=== PATIENT | female | born 1995 | race Caucasian/White ===

== ENCOUNTER 2023-01-24 21:48 | Day surgery (SDC) | payer OTHER ==
[2023-01-24 22:28] VITALS: BMI 38.1
[2023-01-24] MEDS ORDERED: Lactated Ringer's 1,000 ML IV SCH (22:30)
[2023-01-24] MEDS ORDERED: hydrALAZINE 20 MG/ML VIAL SLOW IVP PRN (22:30)
[2023-01-24 23:56] LABS: Bilirubin 3+ (Negative); Blood, Urine 25 (Negative); Clarity Slightly Cloudy (Clear); Glucose, Urine (Dipstick) Normal (Negative); Ketone, Urine 15 mg/dL (Negative); Leukocyte 500 (Negative); Nitrite Negative (Negative); Protein, Urine (Dipstick) 30 mg/dl (Neg-Trace); Urobilinogen 12 mg/dL (Less than 2); pH, Urine 6.5 (5.0-9.0)
[2023-01-25 00:14] LABS: Bacteria/HPF 4+ HPF (None Seen); CAUTI Indications for Culture Pregnancy; RBC/HPF 0-3 HPF (0-3); Squamous Epithelial 0-3 HPF (0-3); WBC/HPF 21-50 HPF (0-3)
[2023-01-25 00:15] LABS: Urine Culture Reflex Yes Yes
[2023-01-25] MEDS ORDERED: Terbutaline Sulfate 1 MG/ML VIAL SC SCH (00:15)
[2023-01-25] MEDS ORDERED: Terbutaline Sulfate 1 MG/ML VIAL ONE (00:17)
[2023-01-25] MEDS ORDERED: cefTRIAXone\\ROCEPHIN 2 GM in Sodium Chloride 0.9% 100 ML IVPB SCH (01:00)
== END 2023-01-25 01:59 | disposition home or self-care (01) ==
LOC: CSHLD/OP 21:48
PROVIDERS: ATTEND Family Medicine
DX: O47.03 False labor before 37 completed weeks of gestation, third trimester (principal); O23.43 Unspecified infection of urinary tract in pregnancy, third trimester; N39.0 Urinary tract infection, site not specified; Z3A.31 31 weeks gestation of pregnancy
CPT/HCPCS: 81001; 87077; 87086; 96360; 99282; J0696; J3105; J3490

== ENCOUNTER 2023-03-16 05:46 | Inpatient (IN) | payer OTHER ==
[2023-03-15 10:23] LABS: Hematocrit 36.2 % (34.9-44.5); Platelet Count 227 10x3/uL (150-450)
[2023-03-15 11:14] LABS: Syphilis Antibody Nonreactive (Nonreactive); Syphilis Antibody Index 0.06 S/CO (<1.00 Non-Reactive)
[2023-03-15 11:15] LABS: HBSAg Index 0.18 S/CO (0-0.99); Hep B Surf Ag Non-Reactive S/CO (NonReactive)
[2023-03-16] MEDS: Lactated Ringer's 1,000 ML IV SCH ×2 (06:00→07:15)
[2023-03-16 06:28] VITALS: BMI 40.4
[2023-03-16] MEDS ORDERED: NS w/ Oxytocin 30 units 500 ML IV SCH ×2 (06:28→11:12)
[2023-03-16] MEDS ORDERED: Famotidine/PF 20 mg/2ml Vial SLOW IVP PRN (06:28)
[2023-03-16] MEDS ORDERED: Misoprostol 200 MCG TAB PR PRN (06:28)
[2023-03-16] MEDS ORDERED: CEFAZOLIN 2 GM in Sodium Chloride 0.9% 100 ML IVPB SCH (06:28)
[2023-03-16] MEDS ORDERED: Methylergonovine 0.2 MG/ML VIAL IM PRN (06:28)
[2023-03-16] MEDS ORDERED: Tranexamic Acid 1,000 MG/10 ML VIAL IVP PRN (06:28)
[2023-03-16] MEDS ORDERED: Bicitra 30 ML UDCUP PO PRN (06:28)
[2023-03-16] MEDS ORDERED: hydrALAZINE 20 MG/ML VIAL SLOW IVP PRN ×2 (06:28→11:12)
[2023-03-16] MEDS ORDERED: Carboprost 250 MCG/ML AMP IM PRN (06:28)
[2023-03-16] MEDS ORDERED: Promethazine HCl 25 MG/ML VIAL IM PRN ×3 (06:28→11:12)
[2023-03-16] MEDS ORDERED: Ondansetron PF 4 MG/2 ML Vial IVP PRN ×3 (06:28→11:12)
[2023-03-16] MEDS ORDERED: Diphenoxylate HCl/Atropine Tablet PO PRN (06:28)
[2023-03-16] MEDS ORDERED: Oxytocin 10 UNITS/ML VIAL ONE (07:17)
[2023-03-16] MEDS ORDERED: Morphine PF 10 MG/10 ML VIAL ONE (07:17)
[2023-03-16] MEDS ORDERED: ePHEDrine Sulfate 50 MG/10 ML VIAL ONE (07:17)
[2023-03-16] MEDS ORDERED: PHENYLEPHRINE-NS 100 MCG/ML 10 ML SYRINGE ONE (07:17)
[2023-03-16] MEDS ORDERED: Ondansetron PF 4 MG/2 ML Vial ONE (07:17)
[2023-03-16] MEDS ORDERED: Phenylephrine 40 MG/NS 250 ML 250 ML ONE (07:18)
[2023-03-16] MEDS ORDERED: Ketorolac Tromethamine 30 MG/ML VIAL ONE (07:18)
[2023-03-16] MEDS ORDERED: Moisturizing Cream (Eucerin) 113 GM JAR TOP PRN (07:26)
[2023-03-16] MEDS ORDERED: Fentanyl 50 MCG/1 ML VIAL SLOW IVP PRN (07:26)
[2023-03-16] MEDS ORDERED: Naloxone HCl 0.4 mg/ml Vial IV PRN (07:26)
[2023-03-16] MEDS ORDERED: Ondansetron HCl/PF 4 MG/2 ML Vial IVP PRN (07:26)
[2023-03-16] MEDS ORDERED: Meperidine HCl/PF 25 MG/ML VIAL SLOW IVP PRN (07:26)
[2023-03-16] MEDS ORDERED: Promethazine HCl 25 MG SUPP PR PRN (07:26)
[2023-03-16] MEDS ORDERED: Naloxone HCl 0.4 mg/ml Vial IVP PRN ×2 (07:26)
[2023-03-16] MEDS ORDERED: diphenhydrAMINE 50 MG/ML VIAL IVP PRN (07:26)
[2023-03-16] MEDS ORDERED: Communication Order-Pharmacy FS SCH (07:30)
[2023-03-16] MEDS ORDERED: diphenhydrAMINE 25 MG CAP PO PRN (11:12)
[2023-03-16] MEDS ORDERED: Lanolin Ointment 7 GM TUBE TOP PRN (11:12)
[2023-03-16] MEDS ORDERED: Meperidine HCl/PF 25 MG/ML VIAL IM PRN (11:12)
[2023-03-16] MEDS ORDERED: Bisacodyl 10 MG SUPP PR PRN (11:12)
[2023-03-16] MEDS ORDERED: Boostrix 0.5 ML (Tdap) VIAL (>/=7 yrs of age) IM ONE (11:12)
[2023-03-16] MEDS ORDERED: Ferrous Sulfate 325 MG TAB PO SCH (11:30)
[2023-03-16] MEDS ORDERED: Prenatal Vitamin 1 TAB PO SCH (11:30)
[2023-03-16] MEDS ORDERED: Docusate 100 MG CAP PO SCH (11:30)
[2023-03-16] MEDS ORDERED: Ketorolac Tromethamine 30 MG/ML VIAL IVP SCH (14:30)
[2023-03-16] MEDS ORDERED: Ketorolac Tromethamine 30 MG/ML VIAL IVP PRN (14:30)
[2023-03-16] MEDS: Ketorolac Tromethamine 30 MG/ML VIAL IVP SCH ×2 (15:51→17:38)
[2023-03-16] MEDS: Docusate 100 MG CAP PO SCH (20:12)
[2023-03-16] MEDS: Ferrous Sulfate 325 MG TAB PO SCH (22:16)
[2023-03-17] MEDS: Ketorolac Tromethamine 30 MG/ML VIAL IVP SCH ×2 (01:38→08:55)
[2023-03-17 03:44] LABS: Hematocrit 29.3 % (34.9-44.5); Hemoglobin 9.8 g/dL (12.0-15.5); Mean Corpuscular HGB CONC 33.4 g/dL (32.0-36.0); Mean Corpuscular Hemoglobin 29.5 pg (27.0-33.0); Mean Corpuscular Volume 88.3 fl (81.6-98.3); Mean Platelet Volume 12.3 fl (7.4-10.4); Platelet Count 181 10x3/uL (150-450); RBC Distribution Width 13.9 % (11.5-14.5); Red Blood Cell (RBC) Count 3.32 10x6/uL (3.90-5.03); White Blood Cell (WBC) Count 9.1 10x3/uL (3.5-10.5)
[2023-03-17] MEDS: HYDROcodone/Acetaminophen 5/325 mg Tablet PO PRN ×3 (08:54→17:59)
[2023-03-17] MEDS: Ferrous Sulfate 325 MG TAB PO SCH ×2 (08:54→22:21)
[2023-03-17] MEDS: Simethicone Chewable 80 MG TAB PO PRN ×3 (08:55→18:00)
[2023-03-17] MEDS: Docusate 100 MG CAP PO SCH ×2 (08:55→22:20)
[2023-03-17] MEDS: Prenatal Vitamin 1 TAB PO SCH (08:55)
[2023-03-17] MEDS ORDERED: Ibuprofen 800 MG TAB PO SCH (12:00)
[2023-03-17] MEDS: Ibuprofen 800 MG TAB PO SCH ×2 (13:47→22:20)
[2023-03-18] MEDS: HYDROcodone/Acetaminophen 5/325 mg Tablet PO PRN ×4 (01:46→17:21)
[2023-03-18] MEDS: Ibuprofen 800 MG TAB PO SCH ×3 (06:32→22:01)
[2023-03-18] MEDS: Prenatal Vitamin 1 TAB PO SCH (08:00)
[2023-03-18] MEDS: Docusate 100 MG CAP PO SCH ×2 (08:00→22:01)
[2023-03-18] MEDS: Ferrous Sulfate 325 MG TAB PO SCH ×2 (08:00→22:02)
[2023-03-18] MEDS: Simethicone Chewable 80 MG TAB PO PRN (16:17)
[2023-03-19] MEDS: HYDROcodone/Acetaminophen 5/325 mg Tablet PO PRN ×2 (03:32→08:31)
[2023-03-19] MEDS: Ibuprofen 800 MG TAB PO SCH (06:12)
[2023-03-19 07:50] VITALS: BP 98/52; TEMP 97.9
[2023-03-19] MEDS: Docusate 100 MG CAP PO SCH (08:29)
[2023-03-19] MEDS: Ferrous Sulfate 325 MG TAB PO SCH (08:29)
[2023-03-19] MEDS: Prenatal Vitamin 1 TAB PO SCH (08:29)
== END 2023-03-19 11:35 | disposition home or self-care (01) | DRG 788 ==
LOC: CSHLD 05:46 → CSHPP 11:10
PROVIDERS: ADMIT Family Medicine; ATTEND Family Medicine
PROC: 10D00Z1 Extraction of Products of Conception, Low, Open Approach (ICD-10-PCS; principal; 2023-03-16)
DX: O34.211 Maternal care for low transverse scar from previous cesarean delivery (principal); Z37.0 Single live birth; Z3A.39 39 weeks gestation of pregnancy; O24.420 Gestational diabetes mellitus in childbirth, diet controlled
CPT/HCPCS: 36415; 36416; 51702; 85014; 85018; 85027; 85049; 86780; 86850; 86900; 86901; 87340; J1885; J2274; J2405; J2590; J3490; J7120; S0028